=== PATIENT | female | born 1950 | race Caucasian/White ===

== ENCOUNTER 2021-11-05 11:04 | Outpatient (CLI) | payer MEDICARE | END 2021-11-05 11:05 | disposition home or self-care (01) | LOC: MADRAD 11:04 | PROVIDERS: ATTEND Registered Nurse | DX: M54.50 Low back pain, unspecified (principal); M47.816 Spondylosis without myelopathy or radiculopathy, lumbar region; K80.20 Calculus of gallbladder without cholecystitis without obstruction | CPT/HCPCS: 72110 ==

== ENCOUNTER 2022-06-20 09:50 | Emergency (ER) | payer MEDICARE ==
[2022-06-20] MEDS ORDERED: Tetracaine 0.5% PF 4 ML BOT ONE (10:30)
[2022-06-20] MEDS ORDERED: Fluorescein Opthalmic Strip ONE (10:31)
[2022-06-20] MEDS ORDERED: Boostrix 0.5 ML (Tdap) VIAL (>/=7 yrs of age) ONE (10:58)
== END 2022-06-20 11:45 | disposition home or self-care (01) ==
LOC: MADERS 09:50
DX: H10.9 Unspecified conjunctivitis (principal); I10 Essential (primary) hypertension; E03.9 Hypothyroidism, unspecified; E11.9 Type 2 diabetes mellitus without complications; E78.00 Pure hypercholesterolemia, unspecified; W22.8XXA Striking against or struck by other objects, initial encounter; Z79.84 Long term (current) use of oral hypoglycemic drugs; Z79.899 Other long term (current) drug therapy; Z23 Encounter for immunization
CPT/HCPCS: 90471; 90715